=== PATIENT | female | born 1985 | race Caucasian/White ===

== ENCOUNTER 2016-05-29 13:54 | Emergency (ER) ==
[2016-05-29] MEDS ORDERED: IMITREX SUBQ ONE ×2 (14:36→16:27)
[2016-05-29] MEDS ORDERED: PHENERGAN IM ONE (14:36)
--- NOTE | 2016-05-29 14:36 | PROVIDER DOCUMENTATION ---
HPI-Headache - General Source: patient - History of Present Illness-Headache Headache Location: reports: frontal Quality of Pain: reports: aching Severity: reports: moderate Onset/Duration: reports: 2 days ago Timing: reports: still present Similar Symptoms Previously?: Yes Recently seen or treated by another doctor?: No <Silvano Nesbitt - Last Filed: 05/29/16 15:26> <Joselito Mccormick - Last Filed: 05/29/16 16:31> - General Chief Complaint: Headache Stated Complaint: HEADACHE/EYE COMPLAINT Time Seen by Provider: 05/29/16 14:31 Allergies/Adverse Reactions: Patient Allergies Allergy/AdvReac Type Severity Reaction Status Date / Time ciprofloxacin HCl * Allergy Intermediate BURNING Verified 11/16/14 17:37 [From Cipro] SKIN topiramate [From Topamax] AdvReac Intermediate MAKES ME Verified 11/16/14 17:37 NUMB Home Medications: Home Medication List Medication Instructions Recorded Confirmed Last Taken Type Gabapentin [Neurontin] 1,200 mg PO BID 06/27/15 06/27/15 06/27/15 History Chlordiazepoxide [Librium] 25 mg PO Q8H PRN PRN #45 capsule 06/30/15 Unknown Rx Buprenorphine HCl [Subutex] 8 mg SL BID #60 tab.subl 07/01/15 Unknown Rx Promethazine [Phenergan] 25 mg PO Q6H PRN PRN #20 tablet 05/29/16 Unknown Rx Sumatriptan Succinate [Imitrex] 50 mg PO 3-4XDAY PRN PRN #8 tablet 05/29/16 Unknown Rx - History of Present Illness-Headache Nature of Presenting Problem: Pt is a 30 yof that presents to er with cc of headache x 2 days. Reports had MRI done 9 years ago and it was reported to her that she had fluid on her brain. pt reports her primary physician Litzy Payne has sent her to two neurologist that wanted to do exploratory surgery and that she ran out on them. Pt also reports that she had blurry vision, intermittent facial drooping. Pt is requesting Emergency MRI. (Silvano Nesbitt) Review of Systems - Adult - REVIEW OF SYSTEMS - ADULT Constitutional: denies: chills, fever, fatique Eyes: reports: blurred vision. denies: decreased vision, double vision, eye pain, redness Ears, Nose, Mouth & Throat: denies: ear pain, sinus problem, throat pain Gastrointestinal: reports: nausea. denies: abdominal pain, diarrhea, poor appetite, vomiting Neurological: reports: headache/migraines, slurred speech, other (facial drooping). denies: dizziness/vertigo, numbness, paresthesia, seizure, syncope, tremors <Silvano Nesbitt - Last Filed: 05/29/16 15:26> Past History - Adult - PAST MEDICAL HISTORY-ADULT Review of Records: reports: Nursing Assessment Review Major Childhood Illnesses: reports: denies history Cardiovascular: reports: denies history Respiratory: reports: denies history Gastrointestinal: reports: denies history Obstetrical/Gynecological: reports: denies history Genitourinary: reports: denies history Musculoskeletal: reports: chronic pain (chronic back pain) Neurological: reports: Seizures/Epilepsy Endocrine/Immune: reports: denies history Other Conditions: reports: denies history - PRIOR SURGERIES/PROCEDURES Surgical/Procedure History: reports: cholecystectomy, hysterectomy, other ( stent in gallbladder) - IMMUNIZATION STATUS Childhood Immunizations: See Nurse Assessment Flu Vaccine: See Nurse Assessment - FAMILY HISTORY Family History: reviewed, not pertinent - SOCIAL HISTORY Smoking: cigarettes, greater than 1 pack/day Provider spent 3-5 mins advising pt. on dangers of tobacco.: Discussed manners to quit use, and f/u contacts for add'l counseling. Substance Use: none/never <LazTinaal - Last Filed: 05/29/16 15:26> Physical Exam- Neurological - Physical Exam-Neuro Initial Vital Signs Reviewed: Yes General Appearance: appears well, alert, no apparent distress Eye Exam: bilateral eye: normal inspection, PERRL, EOMI HENMT: moist mucous membranes, normal ENT inspection, TMs normal, pharynx normal Head Injury: no evidence of injury Neck: non-tender, full range of motion, supple, normal inspection Respiratory: chest non-tender, lungs clear, normal breath sounds, no pleuratic chest pain, no respiratory distress, no accessory muscle use Cardiovascular: tachycardia Abdominal Exam: non tender, soft, no organomegaly, no pulsatile mass Peripheral Pulses: dorsalis-pedis (R): 2+, dorsalis-pedis (L): 2+ Extremity: normal range of motion, non-tender, normal gait can pusher Exam: normal hearing, normal speech, PERRL Coordination/Gait: normal finger to nose, normal gait Motor/Sensory: no motor deficit, no sensory deficit, no pronator drift Neurologic: can pusher II-XII nml as tested, grossly normal, no motor/sensory deficits Integumentary: normal color, normal turgor, warm/dry Psych/Mental Status: normal thought content, normal thought process, oriented x 3 - Glascow Coma Scale Best Eye Response: (4) open spontaneously Best Verbal Response: (5) oriented Best Motor Response: (6) obeys commands Total Glascow Score: 15 <Silvano Nesbitt - Last Filed: 05/29/16 15:26> Progress - REASSESSMENT Reassessment #1 Time Reassessed: 14:38 (MD Mccormick called pt provider Litzy Payne which reports not to give pt any narcotics ) - CT/MRI 1 CT Study: Head Impression: Abnormal (NO BLOOD NO MASS NO HEMM; RIGHT ETHMOID SINUSITIS (HURST)) <Silvano Nesbitt - Last Filed: 05/29/16 15:26> - REASSESSMENT Reassessment #1 Time Reassessed: 04:20 (ready to go home after second shot, headache is a 5 now down from a 10) Status: improving <Joselito Mccormick - Last Filed: 05/29/16 16:31> - PLAN OF CARE/RESULTS Progress/Plan/Lab Results: Orders Category Date Time Status HEAD W/O CONTRAST [CT] Stat Exams 05/29/16 14:32 Ordered Promethazine [Phenergan] Med 05/29/16 14:36 Discontinued 25 mg IM NOW ONE Sumatriptan [Imitrex] Med 05/29/16 14:36 Discontinued 6 mg SUBQ NOW ONE Vital Signs - 24 hr 05/29/16 14:01 Temperature 98 F Pulse Rate 119 H Respiratory 20 Rate Blood Pressure 127/75 O2 Sat by Pulse 98 Oximetry (Silvano Nesbitt) Departure - Departure Time of Disposition Order: 15:03 Certified Medical Emergency: Emergent <Silvano Nesbitt - Last Filed: 05/29/16 15:26> - Departure Time of Disposition Order: 16:30 Certified Medical Emergency: Emergent <Joselito Mccormick - Last Filed: 05/29/16 16:31> - Departure DIAGNOSIS: Headache Qualifiers: Headache type: unspecified Headache chronicity pattern: acute headache Intractability: not intractable Qualified Code(s): R51 - Headache Sinusitis Qualifiers: Sinusitis location: ethmoidal Chronicity: unspecified Qualified Code(s): J32.2 - Chronic ethmoidal sinusitis Disposition: HOME 01 Condition: Stable Additional Instructions: FOLLOW UP WITH YOUR PRIMARY PROVIDER ED Follow Up Instructions: You have been treated by a care provider in the Emergency Department. These instructions are being provided to you so you can have an understanding of how to care for yourself upon discharge. Upon discharge from the Emergency Department, you are responsible for making arrangements for follow-up care by a physician of your choice. Take all prescribed medications as directed. Return to the Emergency Department immediately for any new or worsening symptoms. You may call the Physician Referral phone number at [phone] to obtain a list of Physicians who are taking new patients. Prescriptions: Sumatriptan Succinate [Imitrex] 50 mg PO 3-4XDAY PRN PRN #8 tablet PRN Reason: headache Promethazine [Phenergan] 25 mg PO Q6H PRN PRN #20 tablet PRN Reason: Nausea And Vomiting Referrals: Litzy Payne [Primary Care Provider] - Instructions: Migraine Headache, [id number] Attestation - Scribe Verification/Attestation Scribe:: Silvano Nesbitt Acting as Scribe for:: Joselito Mccormick Scribe documention review:: This chart was documented by a scribe and accurately reflects the service the provider performed and the decisions made by the provider. <Silvano Nesbitt - Last Filed: 05/29/16 15:26> Physician Attestation
--- NOTE | 2016-05-29 15:18 | Diag Imaging Result Document ---
PROCEDURE NAME: HEAD W/O CONTRAST - 05/29/2016 CT BRAIN WITHOUT. DOSE REDUCTION PROTOCOL: FINDINGS: No parenchymal hemorrhage. No epidural or subdural hematoma. No subarachnoid hemorrhage. No mass identified on this noncontrasted exam. No hydrocephalus. No sinus opacification although there is prominent mucus in the right ethmoid sinus. IMPRESSION: 1. No hemorrhage. 2. Right ethmoid sinusitis. [facility]
[2016-05-29 16:39] VITALS: BP 122/74
== END 2016-05-29 16:39 | disposition home or self-care (01) ==
LOC: P.ED 13:54
DX: J32.2 Chronic ethmoidal sinusitis (principal); R51 Headache; H53.8 Other visual disturbances; R29.810 Facial weakness; R11.0 Nausea; R47.81 Slurred speech; G89.29 Other chronic pain; M54.9 Dorsalgia, unspecified; R56.9 Unspecified convulsions; F17.210 Nicotine dependence, cigarettes, uncomplicated; Z79.899 Other long term (current) drug therapy; Z71.6 Tobacco abuse counseling
CPT/HCPCS: 70450; 96372; J2550; J3030